=== PATIENT | female | born 1940 | race African-American/Black ===

== ENCOUNTER 2016-12-10 10:49 | Emergency (ER) | payer OTHER ==
[~2016-12-10 10:49] MED LIST: DIOVAN HCT320 MG/25 PO; LEVOTHYROXIN75 MCG PO; NORV10 PO; TOPXL50 PO; ZOCOR20 PO
[2016-12-10 11:17] LABS: BASOPHILS 0.2 %; BASOPHILS ABSOLUTE 0.01 10/3/uL (0.0-0.16); EOSINOPHILS 0.2 %; EOSINOPHILS ABSOLUTE 0.01 10/3/uL (0.0-0.53); ER CBC TAT 0 Hrs 07 Mins; HEMATOCRIT 47.5 % (36.0-48.0); HEMOGLOBIN 15.9 g/dL (12.0-16.0); IMMATURE GRANULOCYTES 0.2 %; IMMATURE GRANULOCYTES ABSOLUTE 0.01 10/3/uL (0.0-0.11); LYMPHOCYTES 28.3 %; LYMPHOCYTES ABSOLUTE 1.51 10/3/uL (0.67-4.30); MEAN CORPUS HGB CONC 33.5 g/dL (32.0-36.0); MEAN CORPUSCULAR HEMOGLOB 30.6 pg (26.0-34.0); MEAN CORPUSCULAR VOLUME 91.3 fL (80-100); MEAN PLATELET VOLUME 9.5 fL (9.2-13.0); MONOCYTES 11.8 %; MONOCYTES ABSOLUTE 0.63 10/3/uL (0.21-1.20); NEUTROPHILS 59.3 %; NEUTROPHILS ABSOLUTE 3.17 10/3/uL (2.02-8.40); PLATELET COUNT 332 10/3/uL (150-400); RBC DISTRIBUTION WIDTH 13.3 % (12.0-16.0); WHITE BLOOD CELLS 5.3 10/3/uL (4.5-10.5)
[2016-12-10 11:19] LABS: MANUAL DIFF NO %
[2016-12-10 11:38] LABS: A/G RATIO 0.9 (0.7-1.9); ALBUMIN 3.8 G/DL (3.5-5.0); CALCIUM, SERUM 8.4 MG/DL (8.5-10.4); CHLORIDE, SERUM 106 MMOL/L (96-112); CREATININE 1.06 MG/DL (0.55-1.02); GFR AFRICAN AMERICAN 59 ML/MIN (>=60); GFR NON AFRICAN AMERICAN 51 ML/MIN (>=60); GLOBULIN 4.4 G/DL (2.5-4.1); SGOT(AST) 29 U/L (5-40); SGPT(ALT) 58 U/L (5-65); SODIUM, SERUM 140 MMOL/L (135-148); TOTAL BILIRUBIN 0.3 MG/DL (0-1.2); TOTAL PROTEIN 8.2 G/DL (6.0-8.5); TROPONIN I <0.02 NG/ML (<0.05)
[2016-12-10 11:40] LABS: ALKALINE PHOSPHATASE 76 U/L (45-117); BUN (BLOOD UREA NITROGEN) 18 MG/DL (6-23); CO2 (CARBON DIOXIDE) 21 MMOL/L (24-34); GLUCOSE, SERUM 125 MG/DL (60-99)
[2016-12-10 12:29] LABS: ASCORBIC ACID (UR NOT ORDER) 40 (NEG); BILIRUBIN, URINE NEGATIVE (NEG); ER URINALYSIS TAT 0 Hrs 12 Mins; KETONE, URINE TRACE MG/DL (NEG); LEUKOCYTE ESTERASE(NOT OR TRACE (NEG); NITRITE (URINE) NEG (NEG); WBC (NOT ORDERED) (RFLEX) 7 (0-5)
== END 2016-12-10 15:57 | disposition home or self-care (01) ==
LOC: ER 10:49
PROVIDERS: Physician Assistant
DX: K92.1 Melena (principal); E87.6 Hypokalemia; R19.7 Diarrhea, unspecified; R11.2 Nausea with vomiting, unspecified; I10 Essential (primary) hypertension; Z88.5 Allergy status to narcotic agent; Z79.899 Other long term (current) drug therapy
CPT/HCPCS: 36415; 74176; 80053; 81001; 83690; 84484; 85025; 86850; 86900; 86901; 93005; 99285; A9270-GY